=== PATIENT | female | born 1950 | race Caucasian/White ===

== ENCOUNTER 2025-02-22 06:11 | Day surgery (SDC) | payer MEDICARE, OTHER, SELFPAY ==
[2025-02-22 10:16] VITALS: BP 124/57
[2025-02-22 10:21] VITALS: BMI 27.7
[2025-02-22 12:12] VITALS: BP 110/55
[2025-02-22 12:15] VITALS: BP 103/45
[2025-02-22 12:30] VITALS: BP 126/56
[2025-02-22 12:38] VITALS: BP 126/77
== END 2025-02-22 12:45 | disposition home or self-care (01) ==
LOC: GI 06:11
PROVIDERS: ATTENDING PHYSICIAN Internal Medicine Gastroenterology
DX: K86.2 Cyst of pancreas (principal)
CPT/HCPCS: 43242